=== PATIENT | female | born 1965 | race Caucasian/White ===

== ENCOUNTER 2016-07-11 12:34 | Emergency (ER) | payer OTHER ==
[2016-07-11 13:04] VITALS: BP 135/110; PULSE 94; TEMP 98.2; BMI 30.9
[2016-07-11] MEDS ORDERED: ASPIRIN 81 MG CHEWABLE TABLETS PO ONE (14:34)
[2016-07-11] MEDS ORDERED: ASPIRIN 81 MG CHEWABLE TABLETS ONE (15:15)
[2016-07-11 15:16] LABS: BASOPHIL 0.4 % (0-2.0); EOSINOPHIL 0.3 % (0-4.5); MCH 29.1 pg (25.7-33.7); MCHC 32.8 g/dl (32.0-36.0); MEAN CELL VOLUME 88.5 fl (80-96); MEAN PLT VOLUME 9.1 fl (7.5-11.1); NEUTROPHILS 75.1 % (42.8-82.8); PLATELET COUNT 142 K/MM3 (134-434); RDW 15.5 % (11.6-15.6); WHITE BLOOD COUNT 8.1 K/mm3 (4.0-10.0)
--- NOTE | 2016-07-11 15:16 | PDOC ---
History of Present Illness - General History Source: Patient Exam Limitations: No Limitations - History of Present Illness Initial Comments: 07/11/16 15:28 The patient is a 51 year old female with significant past medical history of hypertension, hyperlipidemia, CVAx2, hypothyroidism who presents to the emergency department with chest pain for 2 days. The patient reports intermittent chest pain localized to the center of her chest. Her pain is worse with deep inspiration. She also reports a productive cough for 2 days with yellow sputum. The patient denies any runny nose or sore throat but she does report some facial congestion. The patient reports chills and associated SOB but denies any fevers. The patient is also complaining of abdominal pain for 2 months. She states she recently had a CT at [facility] which was reportedly negative. She denies any associated nausea or vomiting. The patient also states she has some swelling in the left lower extremity with no pain. The patient was told she needs a colonoscopy/endoscopy but has not followed up with a GI specialist yet. <Jonna Preston - Last Filed: 07/11/16 15:28> <Arnol Miles - Last Filed: 07/11/16 16:48> - General Chief Complaint: Chest Pain Stated Complaint: PAIN/ CHEST, LT SIDE, HEADACHE Time Seen by Provider: 07/11/16 14:08 Past History <Jonna Preston - Last Filed: 07/11/16 15:28> - Past Medical History CVA: Yes (x 2) HTN: Yes Thyroid Disease: Yes - Psycho/Social/Smoking Cessation Hx Suicidal Ideation: No Smoking History: Current every day smoker Number of Cigarettes Smoked Daily: 10 Information on smoking cessation initiated: Yes 'Breaking Loose' booklet given: 07/11/16 <Arnol Miles - Last Filed: 07/11/16 16:48> - Past Medical History Allergies/Adverse Reactions: Allergies Allergy/AdvReac Type Severity Reaction Status Date / Time baclofen Allergy Verified 07/11/16 12:56 Review of Systems - Review of Systems Constitutional: Yes: Chills. No: Fever Respiratory: Yes: Cough, Shortness of Breath Cardiac (ROS): Yes: Chest Pain, Edema. No: Lightheadedness ABD/GI: Yes: See HPI. No: Diarrhea, Vomiting Musculoskeletal: Yes: Muscle Pain All Other Systems: Reviewed and Negative <Arnol Miles - Last Filed: 07/11/16 16:48> *Physical Exam - Vital Signs Last Vital Signs Temp Pulse Resp BP Pulse Ox 98.2 F 94 H 18 135/110 95 07/11/16 12:56 07/11/16 12:56 07/11/16 12:56 07/11/16 12:56 07/11/16 12:56 - Physical Exam Comments: 07/11/16 15:28 GENERAL: The patient is awake, alert, and fully oriented, in no acute distress. HEAD: Normal with no signs of trauma. EYES: Pupils equal, round and reactive to light, extraocular movements intact, sclera anicteric, conjunctiva clear with no pallor. ENT: Ears normal, nares patent, oropharynx clear without exudates. Moist mucous membranes. NECK: Normal range of motion, supple without lymphadenopathy, JVD, or masses. LUNGS: Breath sounds equal, clear to auscultation bilaterally. No wheeze/ crackles. HEART: Regular rate and rhythm, normal S1 and S2 without murmur or rub. ABDOMEN: Soft/nontender/nondistended. BS wnl. No guarding or rebound. No palpable masses. No hepatosplenomegaly. EXTREMITIES: Normal range of motion, no edema. No clubbing or cyanosis. No cords, erythema, or tenderness. NEUROLOGICAL: Cranial nerves II through XII grossly intact. Normal speech, normal gait. PSYCH: Normal mood, normal affect. SKIN: Warm, Dry, normal turgor, no rashes or lesions noted. <Jonna Preston - Last Filed: 07/11/16 15:28> - Vital Signs Last Vital Signs Temp Pulse Resp BP Pulse Ox 98.2 F 94 H 18 135/110 95 07/11/16 12:56 07/11/16 12:56 07/11/16 12:56 07/11/16 12:56 07/11/16 12:56 <Arnol Miles - Last Filed: 07/11/16 16:48> Heart Score/ECG Review #1 ECG reviewed & interpreted by me at: 12:41 General ECG Interpretation: Sinus Rhythm, Normal Rate (92), Normal Intervals, No acute ischemic changes <Arnol Miles - Last Filed: 07/11/16 16:48> ED Treatment Course - LABORATORY CBC & Chemistry Diagram: 07/11/16 15:05 07/11/16 15:05 - ADDITIONAL ORDERS Additional order review: 07/11/16 15:05 RBC 4.68 MCV 88.5 MCHC 32.8 RDW 15.5 MPV 9.1 Neutrophils % 75.1 Lymphocytes % 20.7 Monocytes % 3.5 L Eosinophils % 0.3 Basophils % 0.4 - Medications Given in the ED: ED Medications Discontinued Medications Generic Name Dose Route Start Last Admin Trade Name Oswaldo PRN Reason Stop Dose Admin Aspirin 162 mg 07/11/16 14:34 07/11/16 15:15 Asa - PO 07/11/16 14:35 162 mg ONCE ONE Administration <Jonna Preston - Last Filed: 07/11/16 15:28> - LABORATORY CBC & Chemistry Diagram: 07/11/16 15:05 07/11/16 15:05 - RADIOLOGY Radiology Studies Ordered: Category Date Time Status CHEST PA & LAT [RAD] Stat Radiology 07/11/16 14:34 Ordered DUPLEX VASCUL US-2LEGS [US] Stat Ultrasound 07/11/16 15:02 Ordered <Arnol Miles - Last Filed: 07/11/16 16:48> Medical Decision Making - Medical Decision Making 07/11/16 15:04 A portion of this note was documented by scribe services under my direction. I have reviewed the details of the note, within reason, and agree with the documentation with the following case summary and management plan written by me. 51-year-old female with multiple medical problems presents with 3 separate complaints: 2 days of left-sided chest pain with new cough productive of yellow sputum and chills. About one month of intermittent left-sided abdominal pain with reportedly negative workup and CAT scan at [facility] ER Months to years of leg pain and swelling Exam as noted. VSS Most concerning for CP and cough/sob, r/o pna. abd pain subacute, likely gastritis. b/l leg pain chronic. labs, ua cxr, ekg leg doppler dispo 07/11/16 16:47 Labs are within normal limits, troponin negative. Received Doppler, but then eloped from the ED. She was intercepted by nursing who removed her IV, I was unable to speak with her prior to her leaving <Arnol Miles - Last Filed: 07/11/16 16:48> *DC/Admit/Observation/Transfer - Attestations Scribe Attestion: 07/11/16 15:28 Documentation prepared by Jonna Preston, acting as er medical technician for Arnol Miles MD. <Jonna Preston - Last Filed: 07/11/16 15:28> <Arnol Miles - Last Filed: 07/11/16 16:48> Diagnosis at time of Disposition: Cough - Discharge Dispostion Disposition: ELOPED - Referrals Referrals: STAFF,NOT ON [Primary Care Provider] -
[2016-07-11 15:42] LABS: ALBUMIN 3.4 g/dl (3.4-5.0); ANION GAP 9 (8-16); BILIRUBIN,TOTAL 0.3 mg/dL (0.2-1.0); CALCIUM 9.2 mg/dL (8.5-10.1); CO2 38 mmol/L (21-32); CREATININE 0.9 mg/dL (0.55-1.02); GLUCOSE,RANDOM 129 mg/dL (74-106); INR 1.14 (0.82-1.09); MAGNESIUM 1.5 mg/dL (1.8-2.4); PROTHROMBIN TIME (PATIENT) 12.6 SEC (9.98-11.88); SGOT/AST 17 U/L (15-37); SGPT/ALT 14 U/L (12-78); TOT PROT 7.8 g/dl (6.4-8.2)
[2016-07-11 15:45] LABS: ALK PHOS 77 U/L (45-117); TROPONIN I < 0.02 ng/ml (0.00-0.05)
--- NOTE | 2016-07-12 10:58 | EKG ---
Test Reason : Blood Pressure : / mmHG Vent. Rate : 092 BPM Atrial Rate : 092 BPM P-R Int : 152 ms QRS Dur : 072 ms QT Int : 386 ms P-R-T Axes : 071 035 063 degrees QTc Int : 477 ms NORMAL SINUS RHYTHM RIGHT ATRIAL ENLARGEMENT BORDERLINE ECG NO PREVIOUS ECGS AVAILABLE Confirmed by MARLA COKER, ELIAS ([id number]) on 07/12/2016 10:58:26 AM Referred By: Confirmed By:ELIAS GUTIÉRREZ MD
== END 2016-07-11 16:50 | disposition left against medical advice (07) ==
LOC: JER 12:34
DX: R05 Cough (principal); I10 Essential (primary) hypertension; E78.5 Hyperlipidemia, unspecified; Z86.73 Personal history of transient ischemic attack (TIA), and cerebral infarction without residual deficits; E03.9 Hypothyroidism, unspecified; F17.210 Nicotine dependence, cigarettes, uncomplicated
CPT/HCPCS: 36415; 80053; 82550; 83690; 83735; 84484; 85025; 85610; 93005; 93010; 93970-TC; 99281-25